=== PATIENT | female | born 1990 | race American Indian/Alaskan Native ===

== ENCOUNTER 2021-01-08 05:04 | Emergency (ER) | payer MEDICAID ==
[2021-01-08] MEDS ORDERED: Acetaminophen 325 MG Tab PO ONE (05:29)
[2021-01-08] MEDS ORDERED: Ibuprofen 800 MG Tab PO ONE (05:29)
[2021-01-08] MEDS ORDERED: Amoxicillin 500 MG Cap PO ONE (05:30)
--- NOTE | 2021-01-08 05:33 | EDM.PDOC ---
ED HPI GENERAL MEDICAL PROBLEM - General Chief Complaint: ENT Problem Stated Complaint: ABCESS IN MOUTH Time Seen by Provider: 01/08/21 05:20 Source of Information: Reports: Patient, RN, RN Notes Reviewed History Limitations: Reports: No Limitations - History of Present Illness INITIAL COMMENTS - FREE TEXT/NARRATIVE: Pt is a 30 year old female who presents to the ER with c/o dental pain, swelling. She states this began 3-4 days ago, and states the swelling began yesterday and has progressively gotten worse. She states she has pain in the left ear. Patient admits to fever and chills. Denies N/V/D. Patient states she is in the CRU and chronic drug abuser. Onset: Gradual Left Lower Tooth/Teeth Pain Score (Numeric/FACES): 7 Past Medical History - Past Surgical History GI Surgical History: Reports: Cholecystectomy Social & Family History - Family History Family Medical History: No Pertinent Family History - Tobacco Use Tobacco Use Status *Q: Former Tobacco User Used Tobacco, but Quit: No - Caffeine Use Caffeine Use: Reports: Energy Drinks - Alcohol Use Date of Last Drink: 12/15/20 - Recreational Drug Use Recreational Drug Use: Yes Drug Use in Last 12 Months: Yes Recreational Drug Type: Reports: Heroin, Marijuana/Hashish, Methamphetamine Recreational Drug Use Frequency: Patient Refuses To Answer ED ROS GENERAL - Review of Systems Review Of Systems: Comprehensive ROS is negative, except as noted in HPI. ED EXAM, GENERAL - Physical Exam Exam: See Below Exam Limited By: No Limitations General Appearance: Alert, WD/WN, Anxious, Mild Distress Eye Exam: Bilateral Eye: EOMI, Normal Inspection Ears: Normal External Exam, Hearing Grossly Normal Ear Exam: Bilateral Ear: Other (ceruman impaction, unable to visualize TM) Nose: Normal Inspection Throat/Mouth: Normal Voice, No Airway Compromise, Other (dental caries, erythema and swelling to the left upper gums surrounding molars) Head: Atraumatic, Normocephalic, Facial Swelling (left) Neck: Normal Inspection, Supple, Non-Tender, Full Range of Motion Respiratory/Chest: No Respiratory Distress, Lungs Clear, Normal Breath Sounds, No Accessory Muscle Use, Chest Non-Tender Cardiovascular: Normal Peripheral Pulses, Regular Rate, Rhythm, No Edema, No Gallop, No JVD, No Murmur, No Rub Peripheral Pulses: 2+: Radial (L), Radial (R) GI/Abdominal: Normal Bowel Sounds, Soft, Non-Tender (Female) Exam: Deferred Rectal (Female) Exam: Deferred Back Exam: Normal Inspection, Full Range of Motion, NT Extremities: Normal Inspection, Normal Range of Motion, Non-Tender, Normal Capillary Refill, No Pedal Edema Neurological: Alert, Oriented, CN II-XII Intact, Normal Cognition, Normal Gait, Normal Reflexes, No Motor/Sensory Deficits Psychiatric: Normal Affect, Normal Mood Skin Exam: Warm, Dry, Intact, Normal Color, No Rash Lymphatic: No Adenopathy Course - Vital Signs Last Recorded V/S: Last Vital Signs Temp 97.5 F 01/08/21 05:24 Pulse 87 01/08/21 05:24 Resp 18 01/08/21 05:24 BP Pulse Ox 99 01/08/21 05:24 - Orders/Labs/Meds Meds: Medications Discontinued Medications Generic Name Dose Route Start Last Admin Trade Name Bijuq PRN Reason Stop Dose Admin Acetaminophen 650 mg 01/08/21 05:29 Tylenol PO 01/08/21 05:30 NOW ONE Amoxicillin 500 mg 01/08/21 05:30 Amoxil PO 01/08/21 05:31 ONETIME ONE Ibuprofen 800 mg 01/08/21 05:29 Motrin PO 01/08/21 05:30 ONETIME ONE Departure - Departure Time of Disposition: 05:45 Disposition: Home, Self-Care 01 Condition: Good Clinical Impression: Dental caries extending into dentin, Dental caries, Dental abscess - Discharge Information *PRESCRIPTION DRUG MONITORING PROGRAM REVIEWED*: No *COPY OF PRESCRIPTION DRUG MONITORING REPORT IN PATIENT GUERDA: No Instructions: Dental Abscess, [id number] Forms: ED Department Discharge Additional Instructions: RX: Amoxicillin, Ibuprofen, Tylenol Follow up with dental next week Sepsis Event Note (ED) - Evaluation Sepsis Screening Result: No Definite Risk - Focused Exam Vital Signs: Vital Signs Temp Pulse Resp Pulse Ox 01/08/21 05:24 97.5 F 87 18 99
== END 2021-01-08 05:46 | disposition home or self-care (01) ==
LOC: DL.ED 05:04
DX: K04.7 Periapical abscess without sinus (principal); K02.9 Dental caries, unspecified; H61.23 Impacted cerumen, bilateral; Z87.891 Personal history of nicotine dependence
CPT/HCPCS: 99282; A9270